=== PATIENT | male | born 1990 | race Caucasian/White ===

== ENCOUNTER 2021-05-12 06:04 | Day surgery (SDC) | payer OTHER, SELFPAY ==
--- NOTE | 2021-05-12 | IMM_PTH ---
PATIENT: ESHA GARZA [place] [facility] [place][id number] AGE/SX: 30/M ROOM: RE05/12/[address]: Dr. Jim Saini MD : 1990 BED: DIS: 05/12/2021 SPEC #: [id number] RECD: 05/13/21 14:49 STATUS: TABITHA REQ #: [id number] MEGHNA: 05/12/21 00:[address]: Jim Saini DEPT: IMMUNOHISTOCHEMISTRY RECD BY: Heather Rea ENTERED: 05/13/21 14:51 SP TYPE: IMMUNO OTHR DR: No Primary Care Phys Tissues: A - Skin of back, NOS Procedures: SMA (add) CD31 (add) CD34 (add) DESMIN (add) P53 (add) SMM (add) FACTOR VIII (add) Pankeratin (initial) PHYSICIAN & INSTITUTION [place] [id number] SPECIMEN INFORMATION: Tissue Source: A ? Right upper back mass Clinical Info: Epidermoid cyst of skin of back Specimen Number: [id number] CPT code: 48966, 29375 x7 METHODOLOGY: Deparaffinized sections of prefer/formalin-fixed tissue or PAP/DQ stained slides are incubated with monoclonal/polyclonal antibodies/oligonucleotide probes. Localization is made via biotin free immunoperoxidase method. Appropriate controls are performed and reacted as expected. Results on target cell population are indicated in the following table: RESULTS: ANTIBODY / CLONE RESULT Block A AE1-3 (AE1/AE3/PCK26) negative CD31 (CRISTIN/70A) positive Factor VIII (R Ag) positive CD34 (QBEnd-10) positive Actin (1A4) positive Myosin (simms1) negative Desmin (CE-R-11) negative P53 (DO-7) negative These tests were developed and their performance characteristics determined by [facility]. They may not have been cleared or approved by the U.S. Food and Drug Administration. The FDA has determined that such clearance or approval is not necessary. The above immunohistochemical/dualISH markers are ordered and reviewed by the Pathologist. INTERPRETATION: A. Soft tissue mass of right upper back, excision: Consistent with fragments of capillary hemangioma. AM:kassidy 05/14/2021
[2021-05-12 06:35] VITALS: BP 141/75; PULSE 64; RESP 16; TEMP 36.7; O2SAT 100; BMI 24.1
--- NOTE | 2021-05-12 06:42 | HP.PCM_ITS ---
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 Jim Saini MD) Pilonidal cyst Surgical History No pertinent past surgical history Social History (Updated 05/01/21 @ 14:25 by Christelle Gustafson) Smoking Status: Never smoker HPI HPI HPI: ESHA GARZA, is a 30 M who presents to the office today for 2 painful areas. Patient has a painful area in the crease of his buttocks which fills up and then drains bloody material. He says the area is tender. It has been there for several years. Patient also reports he has a right upper back lesion that has been there for several years and growing and it is tender as well. This area has never drained. ROS General General: No weight change, appetite, fatigue, colon cancer, breast cancer or weakness HEENT HEENT: No difficulty swallowing, eye injury, eye surgery, swollen glands or hoarseness Endo Endocrine: No thyroid disease, diabetes mellitus, thyroid cancer, Hair loss, heat intolerance or cold intolerance Cardio Cardiovascular: No murmur, pacemaker, heart disease, atrial fibrillation, high blood pressure, heart attack, heart stent, palpitations, shortness of breat with exertion or chest pain Psych Psychiatric: No depression, anxiety or hearing voices Resp Respiratory: No shortness of breath, No sleep apnea, No cough, No COPD, No asthma, No emphysema and No wheezing Gastro Gastrointestinal: No abdominal pain, No nausea or vomiting, No diarrhea, No constipation, No blood in stool, No acid reflux, No hemorrhoids, No ulcers, No gallbladder problem and No black,tarry stools Sin Hematologic: No blood thinners, No blood disorders, No bleeding, No anemia and No blood clots Neuro Neurologic: No weakness Exam Const General: cooperative Orientation: alert and oriented x3 HENMT Head: normal to inspection Neck Neck: normal visual inspection and full ROM Chest Chest palpation & inspection: normal inspection of the chest Resp Effort & Inspection: normal respiratory effort Auscultation: clear to auscultation bilaterally Cardio Rate: regular rate Rhythm: regular rhythm GI Inspection: non-distended Palpation: soft and nontender Skin General: no rashes or lesions noted Other: Area in the right upper back which could be a lipoma versus sebaceous cyst. There is also a pilonidal cyst in the crease of the buttock Neuro General: patient alert and patient oriented x3 Extrem General: full ROM Psych Appearance: grossly normal Mental Status: mental status grossly normal Assessment and Plan Assessment and Plan (1) Epidermoid cyst of skin of back: Status: Acute (2) Pilonidal cyst: Status: Inactive Plan - Dr. Jim Saini MD: The patient has a pilonidal cyst which I discussed excision with him. I discussed the risks of the procedure as well as the benefits. I discussed the risks of bleeding and infection and nonhealing of the wound. Patient also has an area of the right upper back which may be a lipoma versus cyst and he says this is bothering him and he would like removed at the same time. I will remove both lesions in the operating room and I will have him scheduled for surgery. Jim Saini MD Pager: [facility] [address] [place] [address] [address] [place] [address] Office: I have re-examined the patient. There are no clinical changes since date of exam.
[2021-05-12] MEDS: Lactated Ringers 1,000 ML 15 ML IV (06:50)
[2021-05-12] MEDS: Cefotetan 2 GM in 0.9% NS 100 ML IV (07:28)
--- NOTE | 2021-05-12 07:30 | MASS_PTH ---
PATIENT: ESHA GARZA [place] [facility] [place][id number] AGE/SX: 30/M ROOM: RE05/12/[address]: Dr. Jim Saini MD : 1990 BED: DIS: 05/12/2021 SPEC #: [id number] RECD: 05/12/21 13:27 STATUS: TABITHA RERajeev #: [id number] MEGHNA: 05/12/21 07:[address]: Jim Saini DEPT: SURGICAL PATHOLOGY RECD BY: Katarina Milner ENTERED: 05/12/21 13:52 SP TYPE: Mass OTHR DR: Lacey Primary Care Phys Tissues: A - Back, NOS B - PILONIDAL TISSUE Procedures: Surgery Specimen Level III Surgery Specimen Level IV HEADER OPERATION: Excision pilonidal cyst PRE-OP DIAGNOSIS: Epidermoid cyst of skin of back, pilonidal cyst TISSUE SUBMITTED: A ? Right upper back mass, B ? Pilonidal cyst MICROSCOPIC DIAGNOSIS A. Soft tissue mass of right upper back, excision: Consistent with capillary hemangioma. See comment. B. Pilonidal cyst, not otherwise specified, excision: Consistent with infected/inflamed pilonidal cyst. AM:kassidy 05/13/2021 COMMENT A. Immunohistochemistry ([id number]) supports the above diagnosis. MICROSCOPIC DESCRIPTION Slides are reviewed. GROSS DESCRIPTION A - Received in fixative is one container labeled with the patient's name and designated right upper back mass. The specimen consists of an irregular fragment of rubbery, red-watkins tissue measuring 2.7 x 2 x 0.5 cm. The specimen is serially sectioned totally submitted in one cassette. B - Received in fixative is one container labeled with the patient's name and designated pilonidal cyst. The specimen consists of multiple irregular fragments of skin with adherent soft tissue ranging in size from 1.2 to 2 cm. Serial sections do not reveal mass lesions. Wood Filler sections are submitted in one cassette. / AM:kassidy 05/12/21 TC: CPT:
[2021-05-12] MEDS: Bupivacaine Mpf 0.5% 30 ML VIAL (07:42)
--- NOTE | 2021-05-12 08:12 | OP.PCM_ITS ---
Problems Associated Problem List Diagnoses (1) Lipoma of back: (2) Pilonidal cyst: Report of Operation Date of Procedure: 05/12/21 Pre-Operative Diagnosis: 1. Mass of the right upper back 2. Pilonidal cyst Post-Operative Diagnosis: Same Surgery/Procedure Performed:: 1. Excision of right upper back mass 2. Pilonidal cystectomy Specimen's removed: 1. Right upper back mass 2. Pilonidal cyst Description of Procedure: Patient was brought back to the operating room and general anesthesia was induced. The patient was then flipped into prone jackknife position. The right upper back was prepped and draped in usual sterile fashion. A horizontal incision was marked and injected with local anesthetic. Scalpel was used to make the incision and deepened down to the subcutaneous tissue. Electrocautery was used to dissect around the mass and it was removed. It appeared to be a lipoma which was 2.5 cm in diameter. It was sent for pathology. The cavity was irrigated and hemostasis was obtained using electrocautery. The cavity was irrigated once more and then closed with interrupted 3-0 Vicryl sutures as well as a running 4-0 Monocryl suture. Steri- Strips and a bandage were applied. Next the drape was removed and the pilonidal area was prepped and draped in usual sterile fashion. The cyst sinus was identified and marked and the area ar ound it was injected with local anesthetic. Scalpel was used to make the incision in an elliptical fashion. This was deepened to subcutaneous tissue and the cyst was encountered. It was dissected free using electrocautery and sent for pathology. Cavity was irrigated and suctioned dry and hemostasis was obtained using electrocautery. The cavity was closed with interrupted 3-0 Vicryl sutures and interrupted 3-0 silk sutures for the skin. Dressing was then applied and the patient was taken to PACU in stable condition. Admit VTE Documentation VTE Mechan Device Prophylaxis: SCD's
--- NOTE | 2021-05-12 08:14 | EX.PCM.DISCH ---
Discharge Instructions Procedure General Surgery Diet Discharge Diet: Light diet - advance as tolerated Activity Discharge Activity: May Not Drive (No driving for 1 week or while taking narcotic pain meds.) May shower in (days): 1 Lifting Restrictions: 10 pounds for 2 weeks Additional Activity Instructions:: avoid bending or lifting heavy objects, sit on soft surface Dressing / Incision Call your doctor if your incision/area has: Continuous Slow Oozing, Sudden Increased Bleeding, Increased Pain/ Swelling, Increased Redness, Foul Smelling Discharge and Swelling at the incision site Call your doctor if you observe: Fever of 101 or Higher Suture Line Care: Avoid Pulling/Pushing and Avoid Pinching/Bending Change Dressing in: 1 day Cleanse incision/area with: Soap & Water Follow Up Care Please Follow Up With: Jim Saini MD When: Please call to schedule 2 week follow up appointment. [phone] Test Results: Test results from this visit will be discussed in further detail at your follow-up appointment, if applicable. Discharge Plan Admission Attending Provider: Jim Saini Primary Care Provider: Care Physician,Lacey Primary Discharge Orders/Prescriptions Prescriptions: New oxycodone-acetaminophen [Percocet] 5-325 mg tablet 1 tab PO Q4H PRN (Reason: pain) 5 Days Qty: 20 RF: 0 No Action cetirizine [Zyrtec] 10 mg Tablet 10 mg PO DAILY RF: 0 Referrals / Follow Up: Care PhysicianLacey Primary [Primary Care Provider] - Disposition Disposition (needs filled in before D/C Order can be placed): Home, Self Care
[2021-05-12 08:23] VITALS: BP 124/78; BP 141/75; PULSE 76; RESP 16; TEMP 36.4; O2SAT 100
[2021-05-12 08:30] VITALS: BP 112/84; BP 141/75; PULSE 74; RESP 16; O2SAT 99
[2021-05-12 08:41] VITALS: BP 121/75; BP 141/75; PULSE 69; RESP 16; TEMP 36.1; O2SAT 100
[2021-05-12 09:02] VITALS: BP 141/75
== END 2021-05-12 09:12 | disposition home or self-care (01) ==
LOC: SDC 06:09 → AC 06:11
PROVIDERS: Referring Provider Surgery; Visit Provider Surgery
PROC: (CPT 11770; principal; 2021-05-12 07:15)
PROC: (CPT 11770; 2021-05-12 07:15)
DX: L05.91 Pilonidal cyst without abscess (principal); R22.2 Localized swelling, mass and lump, trunk
CPT/HCPCS: 00300; 11770; 21930; 87426; 88304; 88305; 88341; 88342; J7120; J2405